=== PATIENT | female | born 1995 | race Caucasian/White ===

== ENCOUNTER 2018-11-09 15:30 | Inpatient (IN) | payer OTHER ==
[2018-11-09] VITALS (28 sets, daily range): BP systolic 103–151; BP diastolic 54–97
[~2018-11-09] VITALS: Ht 170.2 cm; Wt 82.2 kg
[2018-11-09] MEDS ORDERED: PREN29CH2 PO (15:48)
[2018-11-09] MEDS ORDERED: TUMS500C PO (15:48)
[2018-11-09] MEDS ORDERED: LACTATED RINGER'S 1000 ML IV STA (18:16)
[2018-11-09] MEDS ORDERED: LR 1,000 ML IV SCH ×2 (18:16)
[2018-11-09] MEDS ORDERED: OXYTOCIN DRIP 30 UNITS in APPROPRIATE DILUENT 1 EA IV SCH (18:30)
[2018-11-09 18:42] LABS: HEMATOCRIT 30.4 % (36.0-47.0); HEMOGLOBIN 10.1 g/dl (12.0-15.5); MEAN CORPUSCULAR HEMOGLOBIN 29.8 pg (27.0-33.0); MEAN CORPUSCULAR HGB CONC 33.2 g/dl (32.0-36.5); MEAN CORPUSCULAR VOLUME 89.7 fl (80.0-96.0); PLATELET COUNT, AUTOMATED 149 10^3/uL (150-450); RED BLOOD COUNT 3.39 10^6/uL (4.00-5.40); WHITE BLOOD COUNT 9.3 10^3/uL (4.0-10.0)
--- NOTE | 2018-11-09 19:14 | HPEPDOC ---
Obstetrical History & Physical General Date of Admission November 09, 2018 at 15:30 History of Present Illness 23 y/o at 41+1 for IOL due to pending postdates. Uncomplicated preg. Information Provided By: Patient Care Care: Good Care Dating Final EDC by: LMP, 1st trimester (US) Past Medical History Past Obstetrical History : Past Obstetrical History: Multigravida Type of Delivery: Spontaneous Vaginal Del. 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 Past Medical History Medical History depression /anxiety not on meds, states that she is doing well Surgical History: Newcomb teeth Family History Significant Family History: No pertinent family hx Social History Marital Status: Family situation: Spouse/partner home Psychosocial History: No pertinent psych hx * Smoker: non-smoker Alcohol: Denies Drugs: denies Abuse Violence Screening Have you been hit/kicked/slapp: No Have you been sexually assault: No Imunizations Tdap status: current Influenza Status: declined Allergies Coded Allergies: No Known Allergies (Unverified , 11/09/18) Medications Scheduled Calcium Carbonate (Tums) 200 Mg Tab.chew, 2 TAB PO QID for cough and congestion No115/Iron/Folic Acid ( 19 Chewable Tablet) 1 Each Tab.chew, 1 TAB PO DAILY Physical Examination Physical Examination GENERAL: Alert and oriented times three ABDOMEN: Gravid and non-tender to touch. FETUS: Is vertex (VTX) by sterile vaginal examination (SVE), Cx 3/60/-3 at 1800 EXTREMITIES: No edema. US: No anatomy scan in chart, states it was done in [place] and they told her it was completely normal. Vital Signs/I&O Vital Signs Date Time Temp Pulse Resp B/P (MAP) Pulse Ox O2 Delivery O2 Flow Rate FiO2 11/09/18 18:30 97.5 83 18 128/67 (87) Laboratory Data [facility] Laboratory Tests 2 11/09/18 15:42: Serology Scanned Report Hepatitis B Testing 11/09/18 16:31: Nucleated Red Blood Cells % (auto) 0.0 CBC/BMP Laboratory Tests 11/09/18 16:31 Red Blood Count 3.39 L, Mean Corpuscular Volume 89.7, Mean Corpuscular Hemoglobin 29.8, Mean Corpuscular Hemoglobin Concent 33.2, Red Cell Distribution Width 13.6 Urine Culture: No Growth Pertinent Laboratoy Data Blood Type: O+ RBC Antibody Screen: Negative HIV: Negative Hepatitis B: Negative Hepatitis C: Unknown Rapid Plasma Reagin: Nonreactive Rubella: Immune Varicella: Immune Chlamydia/Gonorrhea: Negative Group B Streptococcus: Negative Quad Screen Test: Declined Cystic Fibrosis: Declined Assessment Variability: Moderate Accelerations: Positive Decelerations: None Tocometer Contractions: Yes Frequency: irregular Duration: greater than 60 seconds Strength: palpated as mild Assessment/Plan Assessment 41+1, fav cx. No record of paul scan, was told it was normal. Transferred to us at 28 wks. Multiple attempts made to get this report per pt. Plan Admit and orient. Cell Lead and consent. Diet: clears Group B Streptococcus (GBS) neg Labs and intravenous (IV) per unit protocol. Counseled on Pitocin and induction of labor (IOL). Lactated Ringers (LR): Bolus 1000 mL prior epidural, then at 125 mL/hr. Anticipate normal spontaneous delivery () C-S as appropriate. LUIS ARMANDO ALVARES MD November 09, 2018 19:14
[2018-11-09] MEDS ORDERED: FENTANYL 2MCG/ML ROPIVACAINE 0.2% IN 0.9% NACL 100ML IVBAG As Ordered ONE (19:57)
[2018-11-09] MEDS ORDERED: LACTATED RINGER'S 1000 ML IV PRN (20:30)
[2018-11-09] MEDS ORDERED: ePHEDrine SULFATE 25 MG/5 ML(5MG/ML) SYRINGE IV PRN (20:30)
[2018-11-09] MEDS ORDERED: FENTANYL/ROPIVACAINE/NACL BAG 100 ML EPIDURAL SCH (20:30)
[2018-11-09] MEDS ORDERED: EPIDURAL COMMENT XX SCH (20:30)
[2018-11-09] MEDS ORDERED: NALOXONE INJ 0.4 MG/1 ML VIAL (J2310) IV PRN (20:30)
[2018-11-09] MEDS ORDERED: EPIDURAL/PCA KEYS XX PRN (20:30)
[2018-11-09] MEDS ORDERED: REFRIGERATOR IV KEYS XX PRN (20:30)
[2018-11-09] MEDS ORDERED: diphenhydrAMINE INJ 50MG/ML VIAL (J1200) IV PRN (20:30)
[2018-11-09] MEDS ORDERED: ONDANSETRON 4MG/2ML VIAL (J2405) IV PRN (20:30)
[2018-11-10] VITALS (7 sets, daily range): BP systolic 112–132; BP diastolic 55–84
[2018-11-10] MEDS ORDERED: OXYTOCIN DRIP 30 UNITS in APPROPRIATE DILUENT 1 EA IV SCH (00:23)
[2018-11-10] MEDS ORDERED: ONDANSETRON 4MG/2ML VIAL (J2405) IV PRN (00:30)
[2018-11-10] MEDS ORDERED: RHOGAM 300 MCG (1500 IU) INJ (J2790) IM SCH (00:30)
[2018-11-10] MEDS ORDERED: DIBUCAINE 1% OINTMENT 30GM TOP PRN (00:30)
[2018-11-10] MEDS ORDERED: MEASLES,MUMPS,RUBELLA VACCINE INJ (MMR-II) (90707) SC SCH (00:30)
--- NOTE | 2018-11-10 00:33 | DNPDOC ---
[facility] Delivery Note Delivery Note DATE OF DELIVERY: [id number] PREDELIVERY DIAGNOSIS: 41 2/7 weeks' gestation and labor. POST DELIVERY DIAGNOSIS: Delivered. PROCEDURE: Spontaneous vaginal delivery SOCIAL WORK CASE MANAGER: Dr. Alvares ANESTHESIA: epidural ESTIMATED BLOOD LOSS: 200 mL FINDINGS: 7 pound 2 ounce female , Score 9/9 DELIVERY SUMMARY: Great effort. Del'd the vtx FRANCOISE rest'd to LOT, no delay of the ant or post shoulders. Vigorous infant to abd. Cord C/C by FOB. Cord blood. Placenta intact. Fundus firm, pit going 999. 2 small lacs to post vag wall both closed with 3-0 vicryl figure of eight sutures. Cx and per intact. Uncomplicated. Sessions MD ALVARES,LUIS ARMANDO Cutler MD November 10, 2018 00:33
[2018-11-10] MEDS: IBUPROFEN 800 MG TAB PO PRN ×2 (05:32→18:13)
[2018-11-10] MEDS: DOCUSATE SODIUM 100 MG CAP PO SCH ×2 (09:29→21:00)
[2018-11-10] MEDS: PRENATAL VITAMINS CHEWABLE TABLET PO SCH (09:29)
[2018-11-10] MEDS: ACETAMINOPHEN TAB 650MG DOSE (2X325MG) PO PRN (19:40)
[2018-11-11] MEDS: ACETAMINOPHEN TAB 650MG DOSE (2X325MG) PO PRN (02:32)
[2018-11-11 06:16] VITALS: BP 120/65
--- NOTE | 2018-11-11 07:14 | DS.PDOC ---
Discharge Summary General Date of Admission November 09, 2018 at 15:30 Date of Discharge November 11, 2018 Discharge Summary HOSPITAL COURSE: Ms. Stark is a 23 yo G2 now P2 who underwent an uncomplicated late at night on 09Nov2018 after being admitted for an IOL for late term . Her course has been unremarkable. On her day of discharge she met all appropriate discharge criteria. She was ambulating, voiding, tolerating a regular diet, had no pain, and had minimal lochia. DISCHARGE MEDICATIONS: Please see below. ALLERGIES: Please see below. PHYSICAL EXAMINATION ON DISCHARGE: VITAL SIGNS: Please see below. GENERAL: AAOX3, sitting up in bed, NAD ABDOMINAL EXAMINATION: Fundus firm at U-2. No fundal tenderness. EXTREMITIES: No edema PSYCHIATRIC EXAMINATION: Affect appropriate LABORATORY DATA: Please see below. ACTIVITY: Pelvic rest for 6 weeks DIET: Regular DISCHARGE PLAN: Discharge to home or boarder DISPOSITION: Discharge to home or to boarder on 11Nov2018. DISCHARGE INSTRUCTIONS: 1. Pelvic rest for 6 weeks. ITEMS TO FOLLOWUP ON ON OUTPATIENT: 1. appointment in 6 weeks. DISCHARGE CONDITION: Stable. TIME SPENT ON DISCHARGE: Greater than 20 minutes. Benitez Peraza DO Vital Signs/I&Os Vital Signs Date Time Temp Pulse Resp B/P (MAP) Pulse Ox O2 Delivery O2 Flow Rate FiO2 11/11/18 06:16 98.8 68 16 120/65 (83) Discharge Medications Scheduled Calcium Carbonate (Tums) 200 Mg Tab.chew, 2 TAB PO QID for cough and congestion, (Reported) No115/Iron/Folic Acid ( 19 Chewable Tablet) 1 Each Tab.chew, 1 TAB PO DAILY, (Reported) Allergies Coded Allergies: No Known Allergies (Unverified , 11/09/18) BENITEZ PERAZA DO November 11, 2018 07:14
[2018-11-11] MEDS ORDERED: COLA100C5 PO (08:51)
[2018-11-11] MEDS ORDERED: PRENTAB9 PO (08:51)
[2018-11-11] MEDS ORDERED: IBUP-1114 PO (08:51)
[2018-11-11] MEDS ORDERED: MAPA500T2 PO (08:51)
[2018-11-11] MEDS: DOCUSATE SODIUM 100 MG CAP PO SCH (09:00)
[2018-11-11] MEDS: PRENATAL VITAMINS CHEWABLE TABLET PO SCH (09:00)
== END 2018-11-11 12:43 | disposition home or self-care (01) | DRG 807 ==
LOC: M LDI 15:30 → M OBS 11-10 02:30
PROVIDERS: ADMIT Obstetrics & Gynecology; ATTEND Obstetrics & Gynecology
PROC: 3E033VJ Introduction of Other Hormone into Peripheral Vein, Percutaneous Approach (ICD-10-PCS; 2018-11-09)
PROC: 10E0XZZ Delivery of Products of Conception, External Approach (ICD-10-PCS; principal; 2018-11-10)
PROC: 0HQ9XZZ Repair Perineum Skin, External Approach (ICD-10-PCS; 2018-11-10)
DX: O48.0 Post-term pregnancy (principal); Z37.0 Single live birth; Z3A.41 41 weeks gestation of pregnancy; O70.0 First degree perineal laceration during delivery

== ENCOUNTER 2019-12-24 11:12 | Emergency (ER) | payer OTHER ==
[~2019-12-24] VITALS: Ht 170.2 cm; Wt 78.6 kg
[2019-12-24 11:12] VITALS: BP 145/72
[~2019-12-24 11:12] MED LIST: COLA100C5 PO; IBUP-1114 PO; MAPA500T2 PO; PREN29CH2 PO; PRENTAB9 PO; TUMS500C PO
[2019-12-24] MEDS ORDERED: FLUO40CA (11:18)
[2019-12-24] MEDS ORDERED: SILVER SULFADIAZINE 1% CR 50 GM JAR TOP ONE (11:45)
[2019-12-24] MEDS ORDERED: SILV1CRE60 TOP (12:03)
== END 2019-12-24 12:11 | disposition home or self-care (01) ==
LOC: M ED 11:12
DX: T24.231A Burn of second degree of right lower leg, initial encounter (principal); S80.11XA Contusion of right lower leg, initial encounter; X17.XXXA Contact with hot engines, machinery and tools, initial encounter; Y92.410 Unspecified street and highway as the place of occurrence of the external cause; V86.05XA Driver of 3- or 4- wheeled all-terrain vehicle (ATV) injured in traffic accident, initial encounter; Y99.9 Unspecified external cause status; Y93.89 Activity, other specified

== ENCOUNTER 2020-04-28 10:27 | Emergency (ER) | payer OTHER ==
[~2020-04-28] VITALS: Ht 170.2 cm; Wt 81.4 kg
[~2020-04-28 10:27] MED LIST changes: +FLUO40CA; +SILV1CRE60 TOP
--- NOTE | 2020-04-28 11:11 | REPVR ---
PROCEDURE INFORMATION: Exam: XR Right Ankle Exam date and time: 04/28/2020 11:02 AM Age: 24 years old Clinical indication: Injury or trauma; Fall; Sprain or strain; Ankle; Right; Additional info: Pain, trauma TECHNIQUE: Imaging protocol: XR Right ankle. Views: Frontal, lateral, and 2 oblique views. COMPARISON: No relevant prior studies available. FINDINGS: Bones/joints: No acute bony abnormality identified. Joint effusion difficult to exclude due to anterior soft tissue swelling. Soft tissues: Mild anterior soft tissue swelling. IMPRESSION: No acute bony injury identified. Electronically signed by: Kyaw Martinez On 04/28/2020 11:11:29 AM
[2020-04-28 11:34] VITALS: BP 114/78
== END 2020-04-28 11:48 | disposition home or self-care (01) ==
LOC: M ED 10:27
DX: S93.491A Sprain of other ligament of right ankle, initial encounter (principal); W01.0XXA Fall on same level from slipping, tripping and stumbling without subsequent striking against object, initial encounter; Y92.9 Unspecified place or not applicable; Y93.9 Activity, unspecified; Y99.9 Unspecified external cause status

== ENCOUNTER 2021-05-27 08:37 | Emergency (ER) | payer OTHER ==
[~2021-05-27] VITALS: Ht 170.2 cm; Wt 61.5 kg
[2021-05-27 08:38] VITALS: BP 130/80
[2021-05-27] MEDS ORDERED: ONDA4TAB6 (08:49)
[2021-05-27] MEDS ORDERED: CETI-24 (08:49)
--- OUTSIDE RECORDS SUMMARY | 2021-05-27 10:17 | CCD ---
Author Author [facility] Address Unknown Phone Unavailable Support Name Relationship Address Phone UE Next Of Kin Unknown Unavailable [place] [address] ALESSANDRA LE Next Of Kin [address] [place] [address] ALESSANDRA LE E[place] [id number] [place] [address] Unavailable Re-disclosure Warning The records that you are about to access may contain information from federally-assisted alcohol or drug abuse programs. If such information is present, then the following federally mandated warning applies: This information has been disclosed to you from records protected by federal confidentiality rules (42 CFR part 2). The federal rules prohibit you from making any further disclosure of this information unless further disclosure is expressly permitted by the written consent of the person to whom it pertains or as otherwise permitted by 42 CFR part 2. A general authorization for the release of medical or other information is NOT sufficient for this purpose. The Federal rules restrict any use of the information to criminally investigate or prosecute any alcohol or drug abuse patient.The records that you are about to access may contain highly sensitive health information, the redisclosure of which is protected by Article 27-F of the [facility] Public Health law. If you continue you may have access to information: Regarding HIV / AIDS; Provided by facilities licensed or operated by the [facility] Office of Mental Health; or Provided by the [facility] Office for People With Developmental Disabilities. If such information is present, then the following [facility] mandated warning applies: This information has been disclosed to you from confidential records which are protected by state law. State law prohibits you from making any further disclosure of this information without the specific written consent of the person to whom it pertains, or as otherwise permitted by law. Any unauthorized further disclosure in violation of state law may result in a fine or senior living sentence or both. A general authorization for the release of medical or other information is NOT sufficient authorization for further disc losure. Medications No Information Insurance Providers Payer name Policy type / Coverage type Policy ID Covered green party ID Covered green party's relationship to [place] Policy [place] Plan Information [facility] [id number] [facility] O [id number] S [id number] [facility] - O/P [id number] Problems, Conditions, and Diagnoses No Information Surgeries/Procedures No Information Results No Information Social History No Information
== END 2021-05-27 10:25 | disposition left against medical advice (07) ==
LOC: M ED 08:37
DX: Z53.29 Procedure and treatment not carried out because of patient's decision for other reasons (principal)

== ENCOUNTER → 2021-06-01 | Outpatient (CLI) | payer OTHER ==
[~2021-06-01] MED LIST changes: +CETI-24; +GLUCAGON INJ 1MG VIAL As Ordered ONE; +NEULUMEX 0.1% SUSPENSION 450ML BOTTLE (FORMERLY VOLUMEN) As Ordered ONE; +ONDA4TAB6
--- NOTE | 2021-06-01 15:59 | REP ---
INDICATION: ABNORMAL WEIGHT LOSS COMPARISON: None. TECHNIQUE: Axial contrast-enhanced images from the lung bases to the pubic symphysis with images obtained in arterial and portal venous phases of enhancement. Low-dose oral contrast material was administered prior to imaging. Coronal and sagittal reformations were obtained. This CT examination was performed using the following dose reduction techniques: Automated exposure control, adjustment of mA and/or kv according to the patient's size, and use of iterative reconstruction technique. FINDINGS: The enteric system from the level of the gastroesophageal junction through the rectosigmoid is relatively normal and age-appropriate. There is no evidence for acute obstruction or inflammatory process. A normal terminal ileum and appendix are identified in the right lower quadrant. Scattered sigmoid diverticula noted without acute diverticulitis. No evidence for inflammatory fat stranding or significant enterocolonic changes. Liver, spleen, pancreas, bilateral adrenal glands and right kidney are normal. Left kidney includes 1.3 cm simple cyst. Incidental splenic calcifications consistent with prior granulomatous disease. Cholelithiasis noted. Pelvis demonstrates normal bladder and retroverted uterus. No ascites. No adenopathy. No free air. Abdominal aorta and vasculature appears normal. Musculoskeletal structures are normal. Lung bases are clear. IMPRESSION: Normal CT enterography of the abdomen and pelvis. <Electronically signed by Robert Yu > 06/01/21 [id number]
== END ==
LOC: M RAD 13:08
PROVIDERS: ATTEND Internal Medicine Gastroenterology
DX: R63.4 Abnormal weight loss (principal)
CPT/HCPCS: 74177; J1610

== ENCOUNTER → 2021-06-01 | Outpatient (REF) | payer OTHER ==
[~2021-06-01] MED LIST changes: -GLUCAGON INJ 1MG VIAL As Ordered ONE; -NEULUMEX 0.1% SUSPENSION 450ML BOTTLE (FORMERLY VOLUMEN) As Ordered ONE
[2021-06-01 15:21] LABS: CLOSTRIDIUM DIFFICILE PCR NEGATIVE (NEGATIVE)
== END ==
LOC: M LAB REF 13:48
PROVIDERS: ATTEND Internal Medicine Gastroenterology
DX: R11.2 Nausea with vomiting, unspecified (principal); K58.0 Irritable bowel syndrome with diarrhea

== ENCOUNTER → 2021-06-02 | Outpatient (CLI) | payer OTHER ==
[2021-06-02 12:48] LABS: FREE T4 1.01 NG/DL (0.76-1.46); THYROID STIMULATING HORMONE 0.942 uIU/ML (0.358-3.740)
== END ==
LOC: M LAB 10:59
PROVIDERS: ATTEND Internal Medicine Gastroenterology
DX: R11.2 Nausea with vomiting, unspecified (principal)

== ENCOUNTER 2021-07-13 10:35 | Day surgery (SDC) | payer OTHER ==
[~2021-07-13] VITALS: Ht 170.2 cm; Wt 59.8 kg
[~2021-07-13 10:35] MED LIST changes: -CETI-24; +CETI-24 PO; -FLUO40CA; +FLUO40CA PO; +NS 1,000 ML IV ONE; -ONDA4TAB6; +ONDA4TAB6 PO
[2021-07-13] MEDS ORDERED: LIDOCAINE 2% 100MG/5ML SDV (FOR ANES.) As Ordered ONE (11:17)
[2021-07-13] MEDS ORDERED: propofoL 200 MG/20 ML VIAL As Ordered ONE ×2 (11:17→12:30)
[2021-07-13] MEDS ORDERED: fentaNYL 100 MCG/2 ML INJECTION (J3010) As Ordered ONE (11:34)
[2021-07-13 13:10] VITALS: BP 106/59
== END 2021-07-13 13:17 | disposition home or self-care (01) ==
LOC: M OPP 10:35
PROVIDERS: ATTEND Internal Medicine Gastroenterology
DX: K58.0 Irritable bowel syndrome with diarrhea (principal); R63.4 Abnormal weight loss; K22.89 Other specified disease of esophagus; R11.2 Nausea with vomiting, unspecified; R12 Heartburn; Z79.899 Other long term (current) drug therapy; Z80.3 Family history of malignant neoplasm of breast; Z80.8 Family history of malignant neoplasm of other organs or systems; Z86.19 Personal history of other infectious and parasitic diseases
CPT/HCPCS: 43239; 45380; 88305; J3010

== ENCOUNTER → 2021-12-07 | Outpatient (CLI) | payer OTHER ==
[~2021-12-07] MED LIST changes: -NS 1,000 ML IV ONE
== END ==
LOC: M RAD 11:44
PROVIDERS: ATTEND Surgery
DX: R10.84 Generalized abdominal pain (principal)
CPT/HCPCS: 78226; A9537

== ENCOUNTER 2021-12-24 04:12 | Emergency (ER) | payer OTHER ==
[~2021-12-24] VITALS: Ht 170.2 cm; Wt 62.7 kg
[2021-12-24 04:12] VITALS: BP 128/77
== END 2021-12-24 06:24 | disposition left against medical advice (07) ==
LOC: M ED 04:12
DX: Z53.29 Procedure and treatment not carried out because of patient's decision for other reasons (principal)

== ENCOUNTER 2022-02-22 08:34 | Day surgery (SDC) | payer OTHER ==
[~2022-02-22] VITALS: Ht 170.2 cm; Wt 61.2 kg
[~2022-02-22 08:34] MED LIST changes: +KETOROLAC 60MG 2ML VIAL As Ordered ONE; +LIDOCAINE 2% INJ 100 MG/5 ML SYRINGE As Ordered ONE; +LR 1,000 ML IV SCH; +METOCLOPRAMIDE INJ 10MG/2ML VIAL (J2765 PER 1) As Ordered ONE; +MIDAZOLAM INJ 2MG/2ML VIAL (J2250 PER 1MG) As Ordered ONE; +NS 1,000 ML IV ONE; +ONDANSETRON 4MG 2ML VIAL As Ordered ONE; +ROCURONIUM BROMIDE 50 MG/5 ML VIAL As Ordered ONE; +dexameTHASONE 4 MG/ML 1ML VIAL (J1100 PER 1MG) As Ordered ONE; +fentaNYL 250 MCG/5 ML INJECTION As Ordered ONE; +propofoL 200 MG/20 ML VIAL As Ordered ONE
[2022-02-22] MEDS ORDERED: BUPIVACAINE HCL 0.25% 30ML VIAL As Ordered ONE (11:46)
[2022-02-22] MEDS ORDERED: dexameTHASONE 4 MG/ML 1ML VIAL (J1100 PER 1MG) As Ordered ONE (12:05)
[2022-02-22] MEDS ORDERED: SUGAMMADEX SODIUM 500 MG/5 ML VIAL (BRIDION) As Ordered ONE (12:42)
[2022-02-22] MEDS ORDERED: ACETAMINOPHEN 1000MG 100ML IV BTL (OFIRMEV) (J0131 PER 10MG) As Ordered ONE (12:49)
[2022-02-22] MEDS ORDERED: ROCURONIUM BROMIDE 50 MG/5 ML VIAL As Ordered ONE (13:01)
[2022-02-22] MEDS ORDERED: propofoL 200 MG/20 ML VIAL As Ordered ONE (13:14)
[2022-02-22] MEDS ORDERED: ONDANSETRON 4MG 2ML VIAL IV PRN (13:45)
[2022-02-22] MEDS ORDERED: fentaNYL 100 MCG/2 ML INJECTION IV PRN (13:45)
[2022-02-22] MEDS ORDERED: LR 1,000 ML IV SCH (13:45)
[2022-02-22] MEDS ORDERED: oxyCODONE 5MG TAB PO PRN (13:45)
[2022-02-22] MEDS ORDERED: NORCO, ANEXSIA 5/325MG TABLET (HYDROcodone/ACETAMINOPHEN) PO PRN (14:05)
[2022-02-22] MEDS ORDERED: ACETAMINOPHEN TAB 650MG DOSE (2X325MG) PO PRN (14:05)
[2022-02-22] MEDS ORDERED: IBUPROFEN 600MG TAB PO PRN (14:05)
[2022-02-22] MEDS ORDERED: HYDR-3715 PO (14:17)
[2022-02-22 15:23] VITALS: BP 114/60
== END 2022-02-22 15:52 | disposition home or self-care (01) ==
LOC: M SDC 08:34
PROVIDERS: ATTEND Surgery
DX: K81.0 Acute cholecystitis (principal); F41.9 Anxiety disorder, unspecified; F32.A Depression, unspecified; J45.909 Unspecified asthma, uncomplicated; Z79.899 Other long term (current) drug therapy
CPT/HCPCS: 47562; 81025; 88304; J0131; J1100; J1885; J2250; J2405; J3010